=== PATIENT | female | born 1990 | race African-American/Black ===

== ENCOUNTER 2017-02-18 20:04 | Emergency (ER) | payer OTHER, MEDICAID ==
[~2017-02-18 20:04] MED LIST: LABE200 PO
[2017-02-18 20:06] VITALS: BP 131/88; PULSE 69; RESP 16; TEMP 99.6; O2SAT 98
--- NOTE | 2017-02-18 20:34 | PD ---
Physical Exam Time Seen by Provider: 20:32 Narrative 26yo F c/o vomiting and diarrhea today. Reports fever 102 this morning. Abd pain on and off. Has Implanon for control. Patient seen in triage. VS reviewed. Awaiting bed placement. Data Data Last Documented VS Vital Signs Date Time Temp Pulse Resp B/P Pulse Ox O2 Delivery O2 Flow Rate FiO2 02/18/17 20:06 99.6 69 16 131/88 98 Room Air MDM Supervised Visit with KRISTOPHER: Alissa Rios Feb 18, 2017 20:33
[2017-02-18] MEDS ORDERED: SODIUM CHLOR 0.9% 1000 ML INJ 1,000 ML IV SCH (20:45)
[2017-02-18] MEDS ORDERED: SODIUM CHLORIDE 0.9% FLUSH 10 ML FLUSH IV FLUSH PRN (20:45)
[2017-02-18] MEDS ORDERED: ONDANSETRON HCL 4 MG/2 ML VIAL IVP ONE (20:45)
[2017-02-18] MEDS ORDERED: DICYCLOMINE HCL 10 MG CAP PO ONE (20:45)
--- NOTE | 2017-02-18 20:50 | PD ---
HPI Chief Complaint: GI Complaint Time Seen by Provider: 20:46 Travel History International Travel<30 days: No Contact w/Intl Traveler<30days: No Traveled to known affect area: No History of Present Illness HPI 26-year-old female presents to the emergency department for evaluation of nausea , vomiting, diarrhea and abdominal pain for 1 day. 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 States that she had multiple episodes of nonbloody nonbilious emesis. States that last night she had a fever of 101F. States that today she began to have diarrhea. She's not had any further episodes of vomiting today but states that she does have nausea. States that she tried Pepto-Bismol with minimal improvement of symptoms. States that her son and her have similar symptoms as well. Denies any recent travel. Denies eating any foods out of the ordinary. Denies any chest pain, shortness of breath, constipation, dysuria , hematuria. No other complaints. Denies , last menstrual period 5 days ago. PFSH Past Medical History Asthma: No Blood Disorders: No Heart Rhythm Problems: No Cancer: No High Cholesterol: No Chest Pain: No Congestive Heart Failure: No COPD: No Diabetes: No Diminished Hearing: No Endocrine: No Genitourinary: No Hypertension: Yes (developed during ) Immune Disorder: No Musculoskeletal: No Neurologic: No Psychiatric: No Reproductive: Yes (hx HPV 2 YEARS AGO) Respiratory: No Sleep Apnea: No Thyroid Disease: No ?: Not LMP: 02/15/2017 : 0 Social History Alcohol Use: No Tobacco Use: Yes Substance Use: No Allergies-Medications (Allergen,Severity, Reaction): Coded Allergies: Seafood (Verified Allergy, Severe, HIVES, 02/18/17) Shellfish (Verified Allergy, Severe, 02/18/17) Reported Meds & Prescriptions Reported Meds & Active Scripts Active No Active Prescriptions or Reported Medications Physical Exam Narrative GENERAL: Well-nourished and well-developed pleasant female patient in no acute distress who is nontoxic appearing. SKIN: Warm and dry. HEAD: Normocephalic and atraumatic. EYES: No injection, drainage, or hyphema noted. PERRLA. EOMI. ENT: No nasal drainage noted. Oropharynx is clear, NECK: Supple and the trachea is midline. CARDIOVASCULAR: Regular rate and rhythm. RESPIRATORY: Breath sounds are equal bilaterally with no accessory muscle use, wheezing, rhonchi, or crackles. GASTROINTESTINAL: Mild periumbilical tenderness to palpation. Negative McBurney 's point. Negative Mon sign. No rebound tenderness or guarding. Abdomen is soft and nondistended. MUSCULOSKELETAL: No obvious deformities, swelling, cyanosis, or ecchymosis is present throughout the upper and lower extremities. Patient has full range of motion without any signs of neurovascular compromise. NEUROLOGICAL: Awake, alert, and oriented. Normal speech and gait. Cranial nerves are grossly intact. Data Data Last Documented VS Vital Signs Date Time Temp Pulse Resp B/P Pulse Ox O2 Delivery O2 Flow Rate FiO2 02/18/17 20:06 99.6 69 16 131/88 98 Room Air Orders Complete Blood Count With Diff (02/18/17 20:45) Comprehensive Metabolic Panel (02/18/17 20:45) Lipase (02/18/17 20:45) Urinalysis - C+S If Indicated (02/18/17 20:45) Iv Access Insert/Monitor (02/18/17 20:45) Ondansetron Inj (Zofran Inj) (02/18/17 20:45) Sodium Chlor 0.9% 1000 Ml Inj (Ns 1000 M (02/18/17 20:45) Sodium Chloride 0.9% Flush (Ns Flush) (02/18/17 20:45) Ed Urine Pregnancytest Poc (02/18/17 20:45) Dicyclomine (Bentyl) (02/18/17 20:45) Labs Laboratory Tests Test 02/18/17 20:51 White Blood Count 9.1 TH/MM3 Red Blood Count 4.27 MIL/MM3 Hemoglobin 13.3 GM/DL Hematocrit 38.5 % Mean Corpuscular Volume 90.3 FL Mean Corpuscular Hemoglobin 31.1 PG Mean Corpuscular Hemoglobin 34.4 % Concent Red Cell Distribution Width 13.2 % Platelet Count 289 TH/MM3 Mean Platelet Volume 7.5 FL Neutrophils (%) (Auto) 67.5 % Lymphocytes (%) (Auto) 22.8 % Monocytes (%) (Auto) 7.6 % Eosinophils (%) (Auto) 1.7 % Basophils (%) (Auto) 0.4 % Neutrophils # (Auto) 6.1 TH/MM3 Lymphocytes # (Auto) 2.1 TH/MM3 Monocytes # (Auto) 0.7 TH/MM3 Eosinophils # (Auto) 0.2 TH/MM3 Basophils # (Auto) 0.0 TH/MM3 CBC Comment DIFF FINAL Differential Comment Urine Color YELLOW Urine Turbidity CLEAR Urine pH 6.0 Urine Specific [place] 1.013 Urine Protein NEG mg/dL Urine Glucose (UA) NEG mg/dL Urine Ketones NEG mg/dL Urine Occult Blood NEG Urine Nitrite NEG Urine Bilirubin NEG Urine Urobilinogen LESS THAN 2.0 MG/DL Urine Leukocyte Esterase NEG Urine RBC 1 /hpf Urine WBC LESS THAN 1 /hpf Urine Squamous Epithelial 1 /hpf Cells Urine Mucus FEW /lpf Microscopic Urinalysis Comment CULT NOT INDICATED Sodium Level 139 MEQ/L Potassium Level 3.4 MEQ/L Chloride Level 105 MEQ/L Carbon Dioxide Level 28.2 MEQ/L Anion Gap 6 MEQ/L Blood Urea Nitrogen 9 MG/DL Creatinine 0.86 MG/DL Estimat Glomerular Filtration 97 ML/MIN Rate Random Glucose 81 MG/DL Calcium Level 8.8 MG/DL Total Bilirubin 0.5 MG/DL Aspartate Amino Transf 17 U/L (AST/SGOT) Alanine Aminotransferase 26 U/L (ALT/SGPT) Alkaline Phosphatase 98 U/L Total Protein 7.9 GM/DL Albumin 3.7 GM/DL Lipase 64 U/L [facility] Medical Decision Making Medical Screen Exam Complete: Yes Emergency Medical Condition: Yes Differential Diagnosis Gastroenteritis versus gastritis versus viral illness versus dehydration versus electrolyte abnormality versus UTI Narrative Course 26-year-old female presents to the emergency department for evaluation of nausea , vomiting, diarrhea, abdominal pain and fever. Patient is afebrile, vital signs are stable. She has some mild periumbilical tenderness to palpation but overall abdominal examination is benign. She states that her son and have had similar symptoms over the past several days as well. IV access is obtained, labs were drawn and sent. Patient is administered IV fluids, Zofran and Bentyl. CBC is unremarkable. Urinalysis shows few mucus. ED urine test is negative. CMP shows mild hypokalemia with a potassium of 3.4, otherwise unremarkable. Patient has remained stable without complaint while here in the emergency department. Patient will be given prescriptions for Bentyl and Zofran. Discussed supportive care and advised follow-up with her PCP as needed. Patient verbalizes understanding and agreement with treatment plan. Diagnosis Primary Impression: Gastroenteritis Referrals: Primary Care Physician Patient Instructions: Gastroenteritis (ED), General Instructions Additional Instructions: Take medication as prescribed. Follow-up with your Primary Care Physician. Return to the ED for any acute worsening of symptoms. Med/Other Pt SpecificInfo: Prescription(s) given Scripts Ondansetron (Zofran)4 Mg Tab4 Mg PO Q6HR PRN (NAUSEA OR VOMITING) #10 TAB Ref 0 Prov:Jeffery Sandoval MD 02/18/17 Dicyclomine (Bentyl)10 Mg Cap10 Mg PO TID PRN (Bowel Management) #8 CAP Ref 0 Prov:Jeffery Sandoval MD 02/18/17 Disposition: 01 DISCHARGE HOME Condition: Stable Alissa Valenzuela Feb 18, 2017 20:50
[2017-02-18 21:03] LABS: BLOOD, URINE NEG (NEG); COMMENT (UR) CULT NOT INDICATED; CULTURE IF INDICATED CULT NOT INDICATED; GLUCOSE,URINE NEG (NEG); KETONE, URINE NEG (NEG); MUCUS URINE FEW /lpf (OCC); NITRITE,URINE NEG (NEG); SQUAMOUS EPITHELIAL CELL URINE 1 /hpf (0-5); URINE COLOR YELLOW (YELLW/STRAW)
[2017-02-18 21:04] LABS: AUTOMATED NEUTROPHIL # 6.1 TH/MM3 (1.8-7.7); BASOPHIL % 0.4 % (0.0-2.0); EOSINOPHIL # 0.2 TH/MM3 (0-0.4); EOSINOPHIL % 1.7 % (0.0-4.0); HEMATOCRIT 38.5 % (35.0-46.0); HEMO FLAGS DIFF FINAL; LYMPH % 22.8 % (9.0-44.0); LYMPHOCYTE # 2.1 TH/MM3 (1.0-4.8); MEAN CELL VOLUME 90.3 FL (80.0-100.0); MEAN CORPUSCULAR HEMOGLOBIN 31.1 PG (27.0-34.0); MEAN CORPUSCULAR HGB CONC 34.4 % (32.0-36.0); MONO % 7.6 % (0.0-8.0); NEUT % 67.5 % (16.0-70.0); PLATELET COUNT 289 TH/MM3 (150-450); RED BLOOD COUNT 4.27 MIL/MM3 (4.00-5.30); RED CELL DISTRIBUTION WIDTH 13.2 % (11.6-17.2); WHITE BLOOD COUNT 9.1 TH/MM3 (4.0-11.0)
[2017-02-18 21:26] LABS: ANION GAP 6 MEQ/L (5-15); AST (GOT) 17 U/L (15-37); BICARBONATE 28.2 MEQ/L (21.0-32.0); BLOOD UREA NITROGEN 9 MG/DL (7-18); CHLORIDE 105 MEQ/L (98-107); GLOMERULAR FILTRATION RATE 97 ML/MIN (>89); POTASSIUM 3.4 MEQ/L (3.5-5.1); SODIUM (NA) 139 MEQ/L (136-145)
[2017-02-18 21:27] LABS: ALT (GPT) 26 U/L (10-53)
[2017-02-18 21:29] LABS: ALKALINE PHOSPHATASE 98 U/L (45-117); TOTAL BILIRUBIN ADULT 0.5 MG/DL (0.2-1.0)
[2017-02-18] MEDS ORDERED: DICY10 PO (21:35)
[2017-02-18] MEDS ORDERED: ZOFR4TAB PO (21:35)
== END 2017-02-18 21:53 | disposition home or self-care (01) ==
LOC: NEPE 20:04
DX: K52.9 Noninfective gastroenteritis and colitis, unspecified (principal); Z72.0 Tobacco use
CPT/HCPCS: 80053; 81001; 83690; 84703; 85025; 96361; 96374; 99284; J2405; J7030

== ENCOUNTER 2017-11-06 10:36 | Emergency (ER) | payer MEDICAID, OTHER ==
[~2017-11-06] VITALS: Ht 165.1 cm; Wt 68.0 kg
[~2017-11-06 10:36] MED LIST changes: +DICY10 PO; -LABE200 PO; +ZOFR4TAB PO
[2017-11-06 10:37] VITALS: BP 129/68; PULSE 90; RESP 18; TEMP 98.6; O2SAT 98
[2017-11-06 11:44] LABS: BACTERIA, URINE RARE /hpf; BILIRUBIN, URINE NEG (NEG); BLOOD, URINE NEG (NEG); GLUCOSE,URINE NEG (NEG); KETONE, URINE NEG (NEG); MUCUS URINE MOD /lpf (OCC); NITRITE,URINE NEG (NEG); SQUAMOUS EPITHELIAL CELL URINE 9 /hpf (0-5); URINE COLOR YELLOW (YELLW/STRAW); URINE LEUKOCYTE ESTERASE MOD (NEG)
[2017-11-06] MEDS ORDERED: SODIUM CHLOR 0.9% 1000 ML INJ 1,000 ML IV SCH (12:59)
[2017-11-06] MEDS ORDERED: ONDANSETRON HCL 4 MG/2 ML VIAL IVP ONE (13:00)
[2017-11-06] MEDS ORDERED: SODIUM CHLORIDE 0.9% FLUSH 10 ML FLUSH IV FLUSH PRN (13:00)
--- NOTE | 2017-11-06 13:07 | PD ---
HPI Chief Complaint: Abdominal Pain Time Seen by Provider: 12:26 Travel History International Travel<30 days: No Contact w/Intl Traveler<30days: No Traveled to known affect area: No History of Present Illness HPI 27-year-old female presents to the emergency department with complaint of generalized abdominal pain, nausea, vomiting that started at approximately 5 AM this morning. Reports diarrhea. Denies fevers, dysuria. Reports hematemesis. Says the first time she vomited there was no blood, but she has been vomiting blood since then. She last vomited recently and the bag of vomit is in her room and I did verify that there is blood in her vomit. Her son is also sick with similar symptoms and was seen yesterday for nausea, vomiting, diarrhea and fever. She rates her pain 7/10. Describes it as a cramping sensation. No known relieving or aggravating factors. Denies history of abdominal surgeries. Last menstrual period was last week. Has not taken any medications or tried any treatments to alleviate her symptoms. Allergies to seafood. No primary care provider. Denies significant past medical history. Has no other medical complaints. No other modifying factors or associated signs and symptoms. PFSH Past Medical History Asthma: No Blood Disorders: No Heart Rhythm Problems: No Cancer: No High Cholesterol: No Chest Pain: No Congestive Heart Failure: No COPD: No Diabetes: No Diminished Hearing: No Endocrine: No Genitourinary: No Hypertension: Yes (developed during ) Immune Disorder: No Musculoskeletal: No Neurologic: No Psychiatric: No Reproductive: Yes (hx HPV 2 YEARS AGO) Respiratory: No Immunizations Current: Yes Sleep Apnea: No Thyroid Disease: No Tetanus Vaccination: < 5 Years Influenza Vaccination: No ?: Unknown : 0 Past Surgical History Surgical History: No Previous Surgery Social History Alcohol Use: Yes (occ) Tobacco Use: No Substance Use: Yes (marijuana occ) Allergies-Medications (Allergen,Severity, Reaction): Coded Allergies: Fish Containing Products (Unverified Allergy, Severe, HIVES, 11/06/17) shellfish derived (Unverified Allergy, Severe, 11/06/17) Reported Meds & Prescriptions Reported Meds & Active Scripts Active Zofran Odt (Ondansetron Odt) 4 Mg Tab 4 Mg SL Q8HR PRN Review of Systems Except as stated in HPI: all other systems reviewed are Neg Physical Exam Narrative GENERAL: Well-nourished, well-developed black female patient, in no acute distress; afebrile; nontoxic appearing SKIN: Warm and dry. HEAD: Atraumatic. Normocephalic. EYES: Pupils equal and round. No scleral icterus. No injection or drainage. ENT: Mucosa pink and moist. Airway patent. NECK: Trachea midline. CARDIOVASCULAR: Regular rate and rhythm. No murmur appreciated. RESPIRATORY: No accessory muscle use. Clear to auscultation. Breath sounds equal bilaterally. GASTROINTESTINAL: Abdomen soft, tenderness to all quadrants on palpation of the abdomen, nondistended. Hepatic and splenic margins not palpable. Bowel sounds are active 4 quadrants. Nonrigid. No guarding. BACK: No CVA tenderness. MUSCULOSKELETAL: No obvious deformities. No clubbing. No cyanosis. No edema. NEUROLOGICAL: Awake and alert. Oriented 3. No obvious cranial nerve deficits. Motor grossly within normal limits. Normal speech. PSYCHIATRIC: Appropriate mood and affect; insight and judgment normal. Data Data Last Documented VS Vital Signs Date Time Temp Pulse Resp B/P (MAP) Pulse Ox O2 Delivery O2 Flow Rate FiO2 11/06/17 16:43 80 14 130/60 (83) 98 Room Air 11/06/17 10:37 98.6 Orders Orders Urinalysis - C+S If Indicated (11/06/17 10:52) Ed Urine Pregnancytest Poc (11/06/17 10:52) Complete Blood Count With Diff (11/06/17 12:59) Comprehensive Metabolic Panel (11/06/17 12:59) Lipase (11/06/17 12:59) Iv Access Insert/Monitor (11/06/17 12:59) Ondansetron Inj (Zofran Inj) (11/06/17 13:00) Sodium Chlor 0.9% 1000 Ml Inj (Ns 1000 M (11/06/17 12:59) Sodium Chloride 0.9% Flush (Ns Flush) (11/06/17 13:00) Ed Discharge Order (11/06/17 16:29) Labs Laboratory Tests Test 11/06/17 10:55 11/06/17 13:50 Urine Color YELLOW Urine Turbidity HAZY Urine pH 6.0 Urine Specific [place] 1.028 Urine Protein 30 mg/dL Urine Glucose (UA) NEG mg/dL Urine Ketones NEG mg/dL Urine Occult Blood NEG Urine Nitrite NEG Urine Bilirubin NEG Urine Urobilinogen 2.0 MG/DL Urine Leukocyte Esterase MOD Urine RBC 5 /hpf Urine WBC 4 /hpf Urine Squamous Epithelial Cells 9 /hpf Urine Bacteria RARE /hpf Urine Mucus MOD /lpf Microscopic Urinalysis Comment CULT NOT INDICATED White Blood Count 11.1 TH/MM3 Red Blood Count 4.48 MIL/MM3 Hemoglobin 14.5 GM/DL Hematocrit 41.8 % Mean Corpuscular Volume 93.4 FL Mean Corpuscular Hemoglobin 32.3 PG Mean Corpuscular Hemoglobin Concent 34.5 % Red Cell Distribution Width 13.1 % Platelet Count 314 TH/MM3 Mean Platelet Volume 7.2 FL Neutrophils (%) (Auto) 91.1 % Lymphocytes (%) (Auto) 3.9 % Monocytes (%) (Auto) 4.6 % Eosinophils (%) (Auto) 0.2 % Basophils (%) (Auto) 0.2 % Neutrophils # (Auto) 10.1 TH/MM3 Lymphocytes # (Auto) 0.4 TH/MM3 Monocytes # (Auto) 0.5 TH/MM3 Eosinophils # (Auto) 0.0 TH/MM3 Basophils # (Auto) 0.0 TH/MM3 CBC Comment DIFF FINAL Differential Comment Blood Urea Nitrogen 13 MG/DL Creatinine 0.79 MG/DL Random Glucose 94 MG/DL Total Protein 8.6 GM/DL Albumin 4.0 GM/DL Calcium Level 8.8 MG/DL Alkaline Phosphatase 88 U/L Aspartate Amino Transf (AST/SGOT) 19 U/L Alanine Aminotransferase (ALT/SGPT) 29 U/L Total Bilirubin 0.6 MG/DL Sodium Level 139 MEQ/L Potassium Level 4.5 MEQ/L Chloride Level 107 MEQ/L Carbon Dioxide Level 29.6 MEQ/L Anion Gap 2 MEQ/L Estimat Glomerular Filtration Rate 106 ML/MIN Lipase 67 U/L [facility] [place] Medical Decision Making Medical Screen Exam Complete: Yes Emergency Medical Condition: Yes Medical Record Reviewed: Yes Differential Diagnosis Gastroenteritis, gastritis, esophageal tears secondary to vomiting, GI bleed, peptic ulcers Narrative Course 27-year-old female with generalized abdominal pain, nausea, vomiting, diarrhea since approximately 5 AM this morning. Her son is sick with similar symptoms and was seen here yesterday. The patient is vomiting blood verified on visualization of her vomit. I did discuss the patient with Dr. Thornton, my attending physician, and we agreed on a plan of care. CBC, CMP, lipase, urinalysis, UPT, IV, normal saline bolus, Zofran ordered. Patient will be given Zofran and then ice chips for a fluid challenge; if tolerated without continued vomiting the patient will be discharged home if labs are unremarkable with Zofran and a plan to return with worsening of symptoms. 1250: Urinalysis without signs of infection. UPT negative. 1600: CBC, CMP unremarkable. On reexamination the patient is sleeping comfortably in the bed. Reports improvement in symptoms. She has not vomited after drinking water and eating ice chips. I discussed lab findings and patient improvement with Dr. Thornton, my attending physician and he agrees the patient discharged. Zofran prescribed for home. Instructed patient to follow up with primary care provider. Patient verbalizes understanding and agreement with treatment plan. Patient is medically cleared and stable for discharge. Discussed reasons to return to the emergency department. Patient agrees with treatment plan. The patients vital signs are stable and the patient is stable for outpatient follow-up and treatment. Patient discharged home, stable and in no acute distress. Diagnosis Primary Impression: Gastroenteritis Referrals: [facility] Primary Care Physician Patient Instructions: Gastroenteritis (ED), General Instructions Additional Instructions: Take Zofran as prescribed for nausea/vomiting Increase fluid intake, starting with clear fluids; advancing to a bland diet as tolerated [place] diet to include crackers, rice, toast, bananas as tolerated, advancing slowly to regular diet Follow-up primary care provider in next 1-2 days Return to emergency department immediately, particularly if develop bloody or black stool, can't keep fluids down, develops disorientation or confusion Med/Other Pt SpecificInfo: Prescription(s) given Scripts Ondansetron Odt (Zofran Odt) 4 Mg Tab 4 MG SL Q8HR Y for Nausea/Vomiting, #6 TAB 0 Refills Prov: Alissa Bolton 11/06/17 Disposition: 01 DISCHARGE HOME Condition: Stable Alissa Bolton Nov 06, 2017 13:07
[2017-11-06 14:02] LABS: AUTOMATED NEUTROPHIL # 10.1 TH/MM3 (1.8-7.7); BASOPHIL % 0.2 % (0.0-2.0); EOSINOPHIL % 0.2 % (0.0-4.0); HEMATOCRIT 41.8 % (35.0-46.0); HEMOGLOBIN 14.5 GM/DL (11.6-15.3); LYMPH % 3.9 % (9.0-44.0); LYMPHOCYTE # 0.4 TH/MM3 (1.0-4.8); MEAN CELL VOLUME 93.4 FL (80.0-100.0); MEAN CORPUSCULAR HEMOGLOBIN 32.3 PG (27.0-34.0); MEAN CORPUSCULAR HGB CONC 34.5 % (32.0-36.0); MEAN PLATELET VOLUME 7.2 FL (7.0-11.0); MONO % 4.6 % (0.0-8.0); MONOCYTE # 0.5 TH/MM3 (0-0.9); NEUT % 91.1 % (16.0-70.0); PLATELET COUNT 314 TH/MM3 (150-450); RED BLOOD COUNT 4.48 MIL/MM3 (4.00-5.30); RED CELL DISTRIBUTION WIDTH 13.1 % (11.6-17.2); WHITE BLOOD COUNT 11.1 TH/MM3 (4.0-11.0)
[2017-11-06 14:17] LABS: ALT (GPT) 29 U/L (10-53); AST (GOT) 19 U/L (15-37); BICARBONATE 29.6 MEQ/L (21.0-32.0); BLOOD UREA NITROGEN 13 MG/DL (7-18); CALCIUM 8.8 MG/DL (8.5-10.1); CHLORIDE 107 MEQ/L (98-107); CREATININE 0.79 MG/DL (0.50-1.00); GLOMERULAR FILTRATION RATE 106 ML/MIN (>89); GLUCOSE,RANDOM 94 MG/DL (74-106); SODIUM (NA) 139 MEQ/L (136-145)
[2017-11-06 14:20] LABS: ALKALINE PHOSPHATASE 88 U/L (45-117); TOTAL BILIRUBIN ADULT 0.6 MG/DL (0.2-1.0); TOTAL PROTEIN 8.6 GM/DL (6.4-8.2)
[2017-11-06 15:29] VITALS: BP 133/68; PULSE 88; RESP 16; O2SAT 98
[2017-11-06] MEDS ORDERED: ZOFR4TAB3 SL (16:05)
[2017-11-06 16:43] VITALS: BP 130/60; PULSE 80; RESP 14; O2SAT 98
== END 2017-11-06 16:45 | disposition home or self-care (01) ==
LOC: NEPD 10:36
DX: K52.9 Noninfective gastroenteritis and colitis, unspecified (principal); I10 Essential (primary) hypertension
CPT/HCPCS: 80053; 81001; 83690; 84703; 85025; 96361; 96374; 99284; J2405; J7030

== ENCOUNTER 2018-01-06 03:19 | Emergency (ER) | payer MEDICAID ==
[~2018-01-06 03:19] MED LIST changes: -DICY10 PO; -ZOFR4TAB PO; +ZOFR4TAB3 SL
[2018-01-06 03:21] VITALS: BP 114/59; PULSE 73; RESP 16; TEMP 98.6; O2SAT 98
[2018-01-06] MEDS ORDERED: IBUP1TAB7 PO (03:33)
--- NOTE | 2018-01-06 03:33 | PD ---
HPI Chief Complaint: Injury Time Seen by Provider: 03:30 Travel History International Travel<30 days: No Contact w/Intl Traveler<30days: No Traveled to known affect area: No History of Present Illness HPI 27-year-old female with no significant medical history presents emergency department for evaluation right shoulder pain. Patient states that she works in [employer] and she has been working a lot lately. She frequently uses the right upper extremity and motions with her right shoulder. Denies any injury. States pain is exacerbated when she rotates the shoulder forward. It is an aching, dull, exacerbated with palpation. Denies any alterations in sensation. She has no other symptoms to report. PFSH Past Medical History Medical History: Denies Significant Hx Asthma: No Blood Disorders: No Heart Rhythm Problems: No Cancer: No High Cholesterol: No Chest Pain: No Congestive Heart Failure: No COPD: No Diabetes: No Diminished Hearing: No Endocrine: No Genitourinary: No Hypertension: Yes (developed during ) Immune Disorder: No Musculoskeletal: No Neurologic: No Psychiatric: No Reproductive: Yes (hx HPV 2 YEARS AGO) Respiratory: No Immunizations Current: Yes Sleep Apnea: No Thyroid Disease: No ?: Not LMP: irregular : 0 Social History Alcohol Use: Yes (occ) Tobacco Use: No Substance Use: Yes (marijuana occ) Allergies-Medications (Allergen,Severity, Reaction): Coded Allergies: Fish Containing Products (Unverified Allergy, Severe, HIVES, 01/06/18) shellfish derived (Unverified Allergy, Severe, 01/06/18) Reported Meds & Prescriptions Reported Meds & Active Scripts Active Ibuprofen 800 Mg Tab 800 Mg PO Q8H PRN Review of Systems Except as stated in HPI: all other systems reviewed are Neg Physical Exam Narrative GENERAL: Well-nourished, well-developed female patient, ambulatory no acute distress. SKIN: Focused skin assessment warm/dry. HEAD: Normocephalic. EYES: No scleral icterus. No injection or drainage. NECK: Supple, trachea midline. No JVD or lymphadenopathy. CARDIOVASCULAR: Regular rate and rhythm without murmurs, gallops, or rubs. RESPIRATORY: Breath sounds equal bilaterally. No accessory muscle use. GASTROINTESTINAL: Abdomen soft, non-tender, nondistended. MUSCULOSKELETAL: No cyanosis, or edema. Tenderness elicited palpation of the anterior lateral aspect of the right shoulder. No deformity. No erythema or edema. Patient has limited range of motion with raising the arm forward and abduction. Distal pulses are palpable. Cap refill within normal limits. BACK: Nontender without obvious deformity. No CVA tenderness. Data Data Last Documented VS Vital Signs Date Time Temp Pulse Resp B/P (MAP) Pulse Ox O2 Delivery O2 Flow Rate FiO2 01/06/18 03:21 98.6 73 16 114/59 (77) 98 Orders Orders Ketorolac Inj (Toradol Inj) (01/06/18 03:45) Splint Or Brace Apply/Monitor (01/06/18 03:31) Ed Discharge Order (01/06/18 03:31) [facility] Medical Decision Making Medical Screen Exam Complete: Yes Emergency Medical Condition: Yes Medical Record Reviewed: Yes Differential Diagnosis Tendinitis versus bursitis versus ligament injury Narrative Course 27-year-old female presents emergency department for evaluation right shoulder pain. Patient has no injury. There is no deformity. X-ray imaging is offered although I do not recommend it. She does decline this. She is treated for pain. She is encouraged to follow-up with behavior management specialist and her primary care provider. She agrees to return immediately with any acute worsening symptoms. Diagnosis Primary Impression: Right shoulder tendinitis Referrals: Orthopaedic Surgeon Primary Care Physician Patient Instructions: General Instructions, Tendinitis (ED) Additional Instructions: Ice to the affected area Follow-up with primary care provider Sling for support Do not wear the sling at all times and do range of motion exercises as we discussed Follow-up with behavior management specialist Outpatient MRI may be warranted Return immediately with acute worsening symptoms Med/Other Pt SpecificInfo: Prescription(s) given Scripts Ibuprofen (Ibuprofen) 800 Mg Tab 800 MG PO Q8H Y for Pain/Inflammation, #30 TAB 0 Refills Prov: Laya Dasilva 01/06/18 Disposition: 01 DISCHARGE HOME Condition: Stable Laya Dasilva Jan 06, 2018 03:33
[2018-01-06] MEDS ORDERED: KETOROLAC TROMETHAMINE 60 MG/2 ML (IM) VIAL IM ONE (03:45)
== END 2018-01-06 03:48 | disposition home or self-care (01) ==
LOC: NEPD 03:19
DX: M75.91 Shoulder lesion, unspecified, right shoulder (principal); I10 Essential (primary) hypertension
CPT/HCPCS: 96372; 99283; J1885